=== PATIENT | female | born 1965 | race Caucasian/White ===

== ENCOUNTER → 2021-01-09 | Outpatient (CLI) | payer BC ==
[~2021-01-09] MED LIST: NONE PER PT
[2021-01-09 08:57] LABS: BASOPHILS % (AUTO) 1 % (0-1); EOSINOPHILS % (AUTO) 1 % (1-7); LYMPHOCYTES % (AUTO) 40 % (22-44); MEAN CORPUSCULAR HEMOGLOBIN 32.1 pg (27.0-34.8); MEAN PLATELET VOLUME 7.7 fL (7.4-10.4); MONOCYTES % (AUTO) 7 % (2-9); NEUTROPHILS % (AUTO) 51 % (42-75); PLATELET COUNT 295 x10^3/uL (130-400); RED BLOOD COUNT 4.46 x10^6/uL (3.82-5.3)
[2021-01-09 09:09] LABS: ANION GAP 3 mmol/L (5-15); CALCIUM 8.9 mg/dL (8.5-10.1); CHLORIDE 110 mmol/L (98-107); CREATININE 0.68 mg/dL (0.55-1.02)
== END | disposition home or self-care (01) ==
LOC: STAR 07:57
PROVIDERS: ATTEND Obstetrics & Gynecology
DX: Z01.818 Encounter for other preprocedural examination (principal); N81.6 Rectocele; N81.10 Cystocele, unspecified; R94.31 Abnormal electrocardiogram [ECG] [EKG]; Z20.822 Contact with and (suspected) exposure to COVID-19
CPT/HCPCS: 36415; 71046; 80048; 84702; 85025; 93005; U0003; U0005

== ENCOUNTER 2021-01-15 12:18 | Day surgery (SDC) | payer BC ==
[~2021-01-15] VITALS: Ht 152.4 cm; Wt 54.7 kg
[~2021-01-15 12:18] MED LIST changes: +BUPIVACAINE/PF 0.5% ONE; +EPINEPHRINE 1 MG/ML, 1ML ONE
[2021-01-15 13:05] VITALS: BP 112/78
[2021-01-15] MEDS ORDERED: LACTATED RINGERS 1,000 ML IV SCH (13:30)
[2021-01-15] MEDS ORDERED: CHLORHEXIDINE 15 ML UDC PO ONE (13:30)
[2021-01-15] MEDS ORDERED: MIDAZOLAM 1 MG/ML, 2ML ONE (13:50)
[2021-01-15] MEDS ORDERED: FENTANYL PF 250 MCG/5ML ONE (13:50)
[2021-01-15] MEDS ORDERED: PROPOFOL 50 ML ONE (13:50)
[2021-01-15] MEDS ORDERED: HYDROmorphone 1 MG/ML, 1ML INJ IVPush PRN (15:00)
[2021-01-15] MEDS ORDERED: EPHEDRINE 50 MG/ML, 1ML IM PRN (15:00)
[2021-01-15] MEDS ORDERED: PROMETHAZINE 25 MG/ML, 1ML IVPush PRN (15:00)
[2021-01-15] MEDS ORDERED: LABETALOL 5MG/ML, 20ML IV PRN (15:00)
[2021-01-15] MEDS ORDERED: FENTANYL PF 100 MCG/2ML IV PRN (15:00)
[2021-01-15] MEDS ORDERED: MEPERIDINE/PF 25MG/0.5ML IVPush PRN (15:00)
[2021-01-15] MEDS ORDERED: DIPHENHYDRAMINE 50 MG/ML, 1ML IVPush PRN (15:00)
[2021-01-15] MEDS ORDERED: ACETAMINOPHEN 325 MG TABLET PO PRN (15:00)
[2021-01-15] MEDS ORDERED: OXYcodone 5 MG/5 ML ORAL.SOL UDC PO PRN (15:00)
[2021-01-15] MEDS ORDERED: EPHEDRINE 50 MG/ML, 1ML IVPush PRN (15:00)
[2021-01-15] MEDS ORDERED: DIAZEPAM 5 MG/ML, 2ML IVPush PRN (15:00)
[2021-01-15] MEDS ORDERED: ONDANSETRON 2MG/ML, 2ML IVPush PRN (15:00)
[2021-01-15] MEDS ORDERED: ONDANSETRON 2MG/ML, 2ML ONE (15:11)
[2021-01-15] MEDS ORDERED: CEFAZOLIN 1,000 MG ONE (15:11)
[2021-01-15] MEDS ORDERED: PROPOFOL 10 MG/ML, 20ML ONE (15:15)
== END 2021-01-15 18:02 | disposition home or self-care (01) ==
LOC: OUT 12:18
PROVIDERS: ATTEND Obstetrics & Gynecology
DX: N81.11 Cystocele, midline (principal); N81.6 Rectocele; Z90.49 Acquired absence of other specified parts of digestive tract; Z90.710 Acquired absence of both cervix and uterus; Z80.3 Family history of malignant neoplasm of breast
CPT/HCPCS: 57260; J0171; J0690; J2250; J2405; J2704; J3010; J7120